=== PATIENT | female | born 1990 | race Hispanic/Latino ===

== ENCOUNTER 2019-02-08 15:45 | Inpatient (IN) | payer OTHER, MEDICAID ==
[2019-02-08] MEDS ORDERED: NARCAN 0.4 MG/1 ML IV PRN (17:12)
[2019-02-08] MEDS ORDERED: ZOFRAN IV PRN (17:12)
[2019-02-08] MEDS ORDERED: XYLOCAINE 2% INFILTRATI ONE (17:12)
[2019-02-08] MEDS ORDERED: MINERAL OIL PO PRN (17:12)
[2019-02-08] MEDS ORDERED: BRETHINE SUB-Q PRN (17:12)
[2019-02-08] MEDS ORDERED: AMPICILLIN/NS 2 GM/100 ML 2 GM/100 ML BAG IV ONE (17:12)
[2019-02-08] MEDS ORDERED: STADOL IV PRN (17:12)
--- NOTE | 2019-02-08 17:27 | History and Physical Report ---
History of Present Illness Date of examination: 02/08/19 Date of admission: 02/08/2019 Chief complaint: Presents for elevated blood pressures at the [facility] this morning. Also admits to visual changes over the last week. History of present illness: care starting at 16 weeks at [facility], 2nd trimester complicated by +Chlamydia (treated with a negative NIKITA); third trimester complicated by a abnormal 1hour GTT; followed by a normal 3hour GTT. course complicated by excessive maternal weight gain (54lbs). 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)), other (Inmate at [facility]) - Obstetrical History Expected Date of Delivery: 02/14/19 Actual Gestation: 39 Week(s) 1 Day(s) : 9 Para: 7 Induced : 1 Number of Living Children: 7 #1 Infant Gender: Male year: 2,004 Birthweight: 3.26 kg Method of Delivery: Vaginal Complications: none #2 Infant Gender: Female year: 2,005 Birthweight: 3.175 kg Method of Delivery: Vaginal Complications: none #3 Gender: Female year: 2,007 Birthweight: 3.175 kg Method of Delivery: Vaginal Complications: none #4 Gender: Female year: 2,010 Birthweight: 3.175 kg Method of Delivery: Vaginal #5 Gender: Male year: 2,013 Birthweight: 3.175 kg Complications: none #6 Infant Gender: Male year: 2,014 Birthweight: 3.175 kg Method of Delivery: Vaginal Complications: none #7 Gender: Female year: 2,017 Method of Delivery: Vaginal Complications: none Medications and Allergies Allergies Allergy/AdvReac Type Severity Reaction Status Date / Time No Known Allergies Allergy Verified 11/05/14 02:38 Home Medications Medication Instructions Recorded Confirmed Last Taken Type Vits96/Iron Fum/Folic 1 each PO QDAY 12/14/14 09/28/17 12/13/14 History [ Tablet] Active Meds: Active Medications Butorphanol Tartrate (Stadol) 2 mg IV Q2H PRN PRN Reason: Pain , Severe (7-10) Ephedrine Sulfate (Ephedrine Sulfate) 10 mg IV Q2M PRN PRN Reason: Hypotension Ampicillin Sodium (Ampicillin/Ns 1 Gm/50 Ml) 1 gm in 50 mls @ 100 mls/hr IV Q4HR CHRISTIANO; Protocol Ampicillin Sodium (Polycillin/Ns 2 Gm/100 Ml) 2 gm in 100 mls @ 100 mls/hr IV ONCE ONE; Protocol Stop: 02/08/19 18:11 Lactated Ringer's (Lactated Ringers) 1,000 mls @ 125 mls/hr IV DIRECT CHRISTIANO Oxytocin/Sodium Chloride (Pitocin/Ns 20 Unit/1000ml Drip) 20 units in 1,000 mls @ 125 mls/hr IV DIRECT CHRISTIANO Oxytocin/Sodium Chloride (Pitocin/Ns 30 Unit/500ml) 30 units in 500 mls @ 4 mls/hr IV TITR CHRISTIANO; Protocol Lidocaine (Xylocaine 2%) 20 ml INFILTRATI ONCE ONE Stop: 02/08/19 17:13 Mineral Oil (Mineral Oil) 30 ml PO QHS PRN PRN Reason: Constipation Naloxone HCl (Narcan 0.4 Mg/1 Ml) 0.1 mg IV Q2MIN PRN PRN Reason: Res Rate </= 8 or 02 SAT < 92% Ondansetron HCl (Zofran) 4 mg IV Q8H PRN PRN Reason: Nausea And Vomiting Terbutaline Sulfate (Brethine) 0.25 mg SUB-Q ONCE PRN PRN Reason: Hyperstimulation/Hypertonicity Review of Systems All systems: negative Eyes: other (black spots on and off x 1 week) - Vital Signs Vital signs: Vital Signs Pulse BP 102 H 124/64 02/08/19 16:21 02/08/19 16:21 Temp Pulse Resp BP Pulse Ox 98.2 F 86 20 97/54 02/08/19 16:25 02/08/19 17:06 02/08/19 16:25 02/08/19 17:06 - Physical Exam Breasts: Positive: normal Cardiovascular: Regular rate Lungs: Positive: Clear to auscultation, Normal air movement Abdomen: Positive: normal appearance, normal bowel sounds Genitourinary (Female): Positive: normal external genitalia, normal perenium Vagina: Positive: normal moisture Uterus: Positive: enlarged Anus/Rectum: Positive: normal perianal skin - Obstetrical FHR: category 1 Uterine Contraction Monitor Mode: External Cervical Dilatation: 3 (Vtx; Intact) Cervical Effacement Percentage: 40 station: -3 Uterine Contraction Pattern: Irregular Uterine Tone Measurement Phase: Resting Uterine Contraction Intensity: Mild Results All other labs normal. Assessment and Plan A: IUP @ 39 1/7 Weeks Category I Tracing GBS Positive [facility] P: Admit to L&D per Routine Orders Pitocin Augmentation GBS Prophylaxis
[2019-02-08 17:37] LABS: Bacteria,Urine 2+ /HPF (Negative); Bilirubin,Urine NEG (Negative); Blood,Urine NEG (Negative); Color,Urine Yellow (Yellow); Mucus,Urine FEW /HPF; Protein,Urine <15 mg/dL mg/dL (Negative); RBC,Urine < 1.0 /HPF (0.0-6.0); Urobilinogen,Urine < 2.0 mg/dL (<2.0); WBC,Urine < 1.0 /HPF (0.0-6.0)
[2019-02-08] MEDS ORDERED: PITOCin/NS 30 UNIT/500ML 30 UNITS/500 ML BAG IV SCH (18:00)
[2019-02-08] MEDS ORDERED: PITOCin/NS 20 UNIT/1000ML DRIP 20 UNITS/1,000 ML BAG IV SCH (18:00)
[2019-02-08] MEDS: LACTATED RINGERS 1,000 ML IV SCH (19:56)
[2019-02-08] MEDS ORDERED: CERVIDIL VG ONE (20:03)
[2019-02-08 20:52] LABS: Hematocrit 32.3 % (30.3-42.9); Hemoglobin 10.9 gm/dl (10.1-14.3); Mean Corpuscular HGB Conc 34 % (30-34); Mean Corpuscular Volume 93 fl (79-97); Platelet Count 208 K/mm3 (140-440); Red Blood Count 3.46 M/mm3 (3.65-5.03); Red Cell Distribution Width 14.4 % (13.2-15.2)
[2019-02-08 21:09] LABS: Alanine Aminotransferase 6 units/L (7-56)
[2019-02-08 21:21] LABS: Uric Acid 5.1 mg/dL (3.5-7.6)
[2019-02-08 22:21] LABS: Amphetamine Screen,Urine PRESUMPTIVE NEGATIVE; Benzodiazepines Screen,Urine PRESUMPTIVE NEGATIVE; Cannabinoid Screen,Urine PRESUMPTIVE NEGATIVE; Cocaine Screen,Urine PRESUMPTIVE NEGATIVE; Methadone Screen,Urine PRESUMPTIVE NEGATIVE; Opiate Screen,Urine PRESUMPTIVE NEGATIVE
[2019-02-09] MEDS: AMPICILLIN/NS 1 GM/50 ML 1 GM/50 ML BAG IV SCH ×3 (04:25→14:19)
[2019-02-09] MEDS: LACTATED RINGERS 1,000 ML IV SCH (05:27)
--- NOTE | 2019-02-09 09:34 | Progress Note ---
Assessment and Plan A: IUP @ 39 2/7 Weeks Category I Tracing GBS Positive [facility] P: Remove Cervidil AROM Internal (IUPC) x1 Continue GBS Prophylaxis Subjective - Subjective Date of service: 02/09/19 Interval history: care starting at 16 weeks at [facility], 2nd trimester complicated by +Chlamydia (treated with a negative NIKITA); third trimester complicated by a abnormal 1hour GTT; followed by a normal 3hour GTT. course complicated by excessive maternal weight gain (54lbs). Patient reports: movement normal Objective - Vital Signs Vital Signs: Vital Signs - 12hr 02/08/19 02/08/19 02/09/19 22:45 23:14 00:43 Temperature Pulse Rate 100 H 96 H 109 H Blood Pressure 101/51 87/47 105/57 O2 Sat by Pulse Oximetry 02/09/19 02/09/19 02/09/19 01:43 02:43 03:43 Temperature Pulse Rate 104 H 94 H 92 H Blood Pressure 117/61 116/56 117/56 O2 Sat by Pulse Oximetry 02/09/19 02/09/19 02/09/19 05:43 06:43 07:07 Temperature 98.4 F Pulse Rate 93 H 101 H Blood Pressure 117/57 125/82 O2 Sat by Pulse Oximetry 02/09/19 02/09/19 02/09/19 07:37 08:07 09:26 Temperature Pulse Rate 96 H 96 H 107 H Blood Pressure 120/64 115/64 O2 Sat by Pulse 98 Oximetry 02/09/19 09:29 Temperature Pulse Rate 104 H Blood Pressure 110/58 O2 Sat by Pulse Oximetry - Exam Breasts: normal Cardiovascular: Regular rate Lungs: Clear to auscultation, Normal air movement Abdomen: Present: normal appearance, soft, normal bowel sounds Uterus: Present: normal, firm, fundal height above umbilicus FHR: category 1 Uterine Contraction Monitor Mode: Internal Cervical Dilatation: 4 (Small amount of clear fluid upon AROM at 0925 ) Cervical Effacement Percentage: 60 station: -2 Uterine Contraction Pattern: Irregular Uterine Tone Measurement Phase: Resting Uterine Contraction Intensity: Mild Extremities: normal - Labs Labs: Abnormal Labs 02/08/19 02/08/19 20:28 20:28 WBC 11.2 H RBC 3.46 L Creatinine 0.5 L ALT 6 L Laboratory Results - last 24 hr 02/08/19 02/08/19 02/08/19 17:00 17:00 20:28 WBC 11.2 H RBC 3.46 L Hgb 10.9 Hct 32.3 MCV 93 MCH 31 MCHC 34 RDW 14.4 Plt Count 208 Creatinine Estimated GFR Uric Acid AST ALT Lactate Dehydrogenase Urine Color Yellow Urine Turbidity Clear Urine pH 7.0 Ur Specific [place] 1.011 Urine Protein <15 mg/dl Urine Glucose (UA) Neg Urine Ketones Tr Urine Blood Neg Urine Nitrite Neg Urine Bilirubin Neg Urine Urobilinogen < 2.0 Ur Leukocyte Esterase Neg Urine WBC (Auto) < 1.0 Urine RBC (Auto) < 1.0 U Epithel Cells (Auto) 2.0 Urine Bacteria (Auto) 2+ Urine Mucus Few Urine Opiates Screen Presumptive negative Urine Methadone Screen Presumptive negative Ur Barbiturates Screen Presumptive negative Ur Phencyclidine Scrn Presumptive negative Ur Amphetamines Screen Presumptive negative U Benzodiazepines Scrn Presumptive negative Urine Cocaine Screen Presumptive negative U Marijuana (THC) Screen Presumptive negative Drugs of Abuse Note Disclamer Blood Type Antibody Screen 02/08/19 02/08/19 20:28 20:35 WBC RBC Hgb Hct MCV MCH MCHC RDW Plt Count Creatinine 0.5 L Estimated GFR > 60 Uric Acid 5.1 AST 12 ALT 6 L Lactate Dehydrogenase 160 Urine Color Urine Turbidity Urine pH Ur Specific [place] Urine Protein Urine Glucose (UA) Urine Ketones Urine Blood Urine Nitrite Urine Bilirubin Urine Urobilinogen Ur Leukocyte Esterase Urine WBC (Auto) Urine RBC (Auto) U Epithel Cells (Auto) Urine Bacteria (Auto) Urine Mucus Urine Opiates Screen Urine Methadone Screen Ur Barbiturates Screen Ur Phencyclidine Scrn Ur Amphetamines Screen U Benzodiazepines Scrn Urine Cocaine Screen U Marijuana (THC) Screen Drugs of Abuse Note Blood Type A POSITIVE Antibody Screen Negative
[2019-02-09] MEDS ORDERED: NARCAN 2 MG/2 ML IV PRN (10:13)
--- NOTE | 2019-02-09 10:15 | Anesthesia Consultation ---
Anesthesia Consult and Med Hx Date of service: 02/09/19 - Airway Anesthetic Teeth Evaluation: Good ROM Head & Neck: Adequate Mental/Hyoid Distance: Adequate Mallampati Class: Class II Intubation Access Assessment: Probably Good - Pulmonary Exam CTA: Yes - Cardiac Exam Cardiac Exam: RRR - Pre-Operative Health Status ASA Pre-Surgery Classification: ASA2 Proposed Anesthetic Plan: Epidural - Pulmonary Hx Smoking: Yes Hx Asthma: Yes COPD: No Hx Pneumonia: No - Cardiovascular System Hx Hypertension: No Hx Coronary Artery Disease: No Hx Heart Attack/AMI: No Hx Angina: No Hx Percutaneous Transluminal Coronary Angioplasty (PTCA): No Hx Cardia Arrhythmia: No Hx Pacemaker: No Hx Internal Defibrillator: No Hx Valvular Heart Disease: No Hx Heart Murmur: No Hx Peripheral Vascular Disease: No - Central Nervous System Hx Neuromuscular Disorder: No Hx Seizures: No CVA: No Hx Back Pain: No Hx Psychiatric Problems: No - Gastrointestinal Hx Ulcer: No Hx Gastroesophageal Reflux Disease: No - Endocrine Hx Renal Disease: No Hx End Stage Renal Disease: No Hx Cirrhosis: No Hx Liver Disease: No Hx Insulin Dependent Diabetes: No Hx Non-Insulin Dependent Diabetes: No Hx Thyroid Disease: No Hx Hypothyroidism: No Hx Hyperthyroidism: No - Hematic Hx Anemia: Yes Hx Sickle Cell Disease: No - Other Systems Hx Alcohol Use: No Hx Substance Use: Yes (methamphetamines) Hx Cancer: No Hx Obesity: Yes
[2019-02-09] MEDS ORDERED: SUBLIMAZE ONE (10:20)
[2019-02-09] MEDS ORDERED: XYLOCAINE 2%/ EPI 1:200,000 INFILTRATI ONE (10:20)
[2019-02-09] MEDS ORDERED: fentaNYL-BUPIV 2 MCG/ML-0.125% 200 MCG/100 ML BAG EPIDURAL SCH (11:00)
[2019-02-09] MEDS ORDERED: NACL 0.9% 1000 ML 1,000 ML ONE (11:42)
--- NOTE | 2019-02-09 12:20 | Progress Note ---
Assessment and Plan A: IUP @ 39 2/7 Weeks Category I Tracing GBS Positive [facility] Inmate P: ISE placed O2 Mask on Pitocin OFF Amnioinfusion started Multiple Maternal Position Changes (FHTs returned to Category I after above interventions) Subjective - Subjective Date of service: 02/09/19 Interval history: care starting at 16 weeks at [facility], 2nd trimester complicated by +Chlamydia (treated with a negative NIKITA); third trimester complicated by a abnormal 1hour GTT; followed by a normal 3hour GTT. course complicated by excessive maternal weight gain (54lbs). Patient reports: other (Resting Well Under Epidural) Objective - Vital Signs Vital Signs: Vital Signs - 12hr 02/09/19 02/09/19 02/09/19 00:43 01:43 02:43 Temperature Pulse Rate 109 H 104 H 94 H Blood Pressure 105/57 117/61 116/56 O2 Sat by Pulse Oximetry 02/09/19 02/09/19 02/09/19 03:43 05:43 06:43 Temperature Pulse Rate 92 H 93 H 101 H Blood Pressure 117/56 117/57 125/82 O2 Sat by Pulse Oximetry 02/09/19 02/09/19 02/09/19 07:07 07:37 08:07 Temperature 98.4 F Pulse Rate 96 H 96 H Blood Pressure 120/64 115/64 O2 Sat by Pulse Oximetry 02/09/19 02/09/19 02/09/19 09:26 09:29 09:31 Temperature Pulse Rate 107 H 104 H 105 H Blood Pressure 110/58 O2 Sat by Pulse 98 97 Oximetry 02/09/19 02/09/19 02/09/19 09:36 09:37 09:41 Temperature Pulse Rate 98 H 95 H 100 H Blood Pressure 111/55 O2 Sat by Pulse 97 97 Oximetry 02/09/19 02/09/19 02/09/19 09:46 09:51 09:56 Temperature Pulse Rate 103 H 92 H 95 H Blood Pressure O2 Sat by Pulse 97 98 97 Oximetry 02/09/19 02/09/19 02/09/19 10:01 10:06 10:07 Temperature Pulse Rate 100 H 92 H 93 H Blood Pressure 121/63 O2 Sat by Pulse 97 97 Oximetry 02/09/19 02/09/19 02/09/19 10:11 10:16 10:21 Temperature Pulse Rate 94 H 95 H 110 H Blood Pressure O2 Sat by Pulse 97 98 97 Oximetry 02/09/19 02/09/19 02/09/19 10:26 10:28 10:30 Temperature Pulse Rate 106 H 102 H 113 H Blood Pressure 130/76 135/83 O2 Sat by Pulse 98 Oximetry 02/09/19 02/09/19 02/09/19 10:31 10:32 10:34 Temperature Pulse Rate 113 H 112 H 112 H Blood Pressure 121/66 126/58 O2 Sat by Pulse 97 Oximetry 02/09/19 02/09/19 02/09/19 10:36 10:38 10:40 Temperature Pulse Rate 118 H 122 H 130 H Blood Pressure 122/60 114/54 118/57 O2 Sat by Pulse 97 Oximetry 02/09/19 02/09/19 02/09/19 10:42 10:43 10:44 Temperature Pulse Rate 113 H 117 H 117 H Blood Pressure 123/64 112/59 O2 Sat by Pulse 98 Oximetry 02/09/19 02/09/19 02/09/19 10:55 10:58 11:17 Temperature Pulse Rate 101 H 104 H 97 H Blood Pressure 107/54 97/51 112/55 O2 Sat by Pulse Oximetry 02/09/19 02/09/19 02/09/19 11:21 11:23 11:26 Temperature Pulse Rate 100 H 93 H 98 H Blood Pressure O2 Sat by Pulse 98 94 97 Oximetry 02/09/19 02/09/19 02/09/19 11:31 11:36 11:41 Temperature Pulse Rate 81 93 H 85 Blood Pressure O2 Sat by Pulse 98 100 100 Oximetry 02/09/19 02/09/19 02/09/19 11:46 11:50 12:02 Temperature Pulse Rate 91 H 93 H 84 Blood Pressure 101/51 102/56 O2 Sat by Pulse 100 Oximetry - Exam Breasts: normal Cardiovascular: Regular rate Lungs: Clear to auscultation, Normal air movement Abdomen: Present: normal appearance, soft, normal bowel sounds Uterus: Present: normal, firm, fundal height above umbilicus FHR: category 1 FHR comments: Called by RN; multiple late decels observed after epidural anesthesia Uterine Contraction Monitor Mode: Internal Cervical Dilatation: 5 (leaking a modrate amout of clear fluid) Cervical Effacement Percentage: 70 station: -2 Uterine Contraction Pattern: Irregular Uterine Contraction Intensity: Moderate Extremities: edema - Labs Labs: Abnormal Labs 02/08/19 02/08/19 20:28 20:28 WBC 11.2 H RBC 3.46 L Creatinine 0.5 L ALT 6 L Laboratory Results - last 24 hr 02/08/19 02/08/19 02/08/19 17:00 17:00 20:18 WBC RBC Hgb Hct MCV MCH MCHC RDW Plt Count Creatinine Estimated GFR Uric Acid AST ALT Lactate Dehydrogenase Urine Color Yellow Urine Turbidity Clear Urine pH 7.0 Ur Specific [place] 1.011 Urine Protein <15 mg/dl Urine Glucose (UA) Neg Urine Ketones Tr Urine Blood Neg Urine Nitrite Neg Urine Bilirubin Neg Urine Urobilinogen < 2.0 Ur Leukocyte Esterase Neg Urine WBC (Auto) < 1.0 Urine RBC (Auto) < 1.0 U Epithel Cells (Auto) 2.0 Urine Bacteria (Auto) 2+ Urine Mucus Few Urine Opiates Screen Presumptive negative Urine Methadone Screen Presumptive negative Ur Barbiturates Screen Presumptive negative Ur Phencyclidine Scrn Presumptive negative Ur Amphetamines Screen Presumptive negative U Benzodiazepines Scrn Presumptive negative Urine Cocaine Screen Presumptive negative U Marijuana (THC) Screen Presumptive negative Drugs of Abuse Note Disclamer RPR Nonreactive Blood Type Antibody Screen 02/08/19 02/08/19 02/08/19 20:28 20:28 20:35 WBC 11.2 H RBC 3.46 L Hgb 10.9 Hct 32.3 MCV 93 MCH 31 MCHC 34 RDW 14.4 Plt Count 208 Creatinine 0.5 L Estimated GFR > 60 Uric Acid 5.1 AST 12 ALT 6 L Lactate Dehydrogenase 160 Urine Color Urine Turbidity Urine pH Ur Specific [place] Urine Protein Urine Glucose (UA) Urine Ketones Urine Blood Urine Nitrite Urine Bilirubin Urine Urobilinogen Ur Leukocyte Esterase Urine WBC (Auto) Urine RBC (Auto) U Epithel Cells (Auto) Urine Bacteria (Auto) Urine Mucus Urine Opiates Screen Urine Methadone Screen Ur Barbiturates Screen Ur Phencyclidine Scrn Ur Amphetamines Screen U Benzodiazepines Scrn Urine Cocaine Screen U Marijuana (THC) Screen Drugs of Abuse Note RPR Blood Type A POSITIVE Antibody Screen Negative
[2019-02-09] MEDS ORDERED: CYTOTEC ONE (13:54)
[2019-02-09] MEDS ORDERED: BENADRYL PO PRN (14:08)
[2019-02-09] MEDS ORDERED: MILK OF MAGNESIA PO PRN (14:08)
[2019-02-09] MEDS ORDERED: LANSINOH TP PRN (14:08)
--- NOTE | 2019-02-09 14:18 | Procedure Note ---
OB Delivery Note - Delivery Date of Delivery: 02/09/19 (1349) Surgeon: KAYLI JORDAN Estimated blood loss: 200cc - Vaginal Delivery presentation: vertex Delivery position: OA Intrapartum events: mult. late decelerations Delivery induction: cervidil Delivery augmentation: rupture of membranes, pitocin Delivery monitor: internal FHT, internal uterine Route of delivery: Delivery placenta: spontaneous Delivery cord: nuchal cord, 3 umbilical vessels Episiotomy: none Delivery laceration: none Anesthesia: epidural Delivery comments: of a live 9'1 male infant over a intact perineum under epidural anesthesia with Apgars of 8 and 9 at 1349 on 02/09/2019. Tight nuchal cord x1 easily manually reduced on the perineum prior to delivery of the anterior shoulder. Infant directly to maternal abd/chest, skin to skin contact. Spontaneous delivery of placenta complete and intact with Ramirez side presenting at 1357. 1000U of Cytotec placed per rectum. Fundus is firm and midline located 5 below the U. Lochia is scant. Delayed cord clamping and cutting; Cord cut by the patient. GBS Positive treated x 4 Doses. Placenta discarded. - Infant A at 1 minute: 8 at 5 minutes: 9 Infant Gender: Male (9'1)
[2019-02-09] MEDS ORDERED: CYTOTEC PR ONE (14:54)
[2019-02-09] MEDS ORDERED: SODIUM CHLORIDE FLUSH SYRINGE 10 ML IV SCH (15:00)
--- NOTE | 2019-02-09 15:54 | Post Anesthesia Evaluation ---
- Post Anesthesia Evaluation Patient Participated: Yes Airway Patent: Yes Stable Respiratory Function: Yes Nausea/Vomiting: No Temp > 96.8F: Yes Pain Manageable: Yes Adequeate Hydration: Yes Anesthesia Complications: No Block Receding Appropriately: Yes Patient on Ventilator: No
[2019-02-09] MEDS ORDERED: TUCKS PAD TP PRN (20:26)
[2019-02-09] MEDS: NORCO 5/325 PO PRN (20:46)
[2019-02-09] MEDS: IBUPROFEN PO SCH (20:46)
[2019-02-09] MEDS: COLACE PO SCH (20:47)
[2019-02-10 01:39] LABS: Hematocrit 30.8 % (30.3-42.9); Hemoglobin 10.3 gm/dl (10.1-14.3)
[2019-02-10] MEDS: NORCO 5/325 PO PRN ×2 (07:51→17:04)
[2019-02-10] MEDS: IBUPROFEN PO SCH ×3 (07:52→17:03)
--- NOTE | 2019-02-10 11:08 | Progress Note ---
Assessment and Plan A: PPD#1 s/p 02/09/19@13:49 Mother incarcerated @ [facility] Stable P: Follow Routine orders Social service consult (pending); Pt reports her brother is coming from [place] to keep infant until she is released from Group Home. Discharge 02/11/2019 back to custody of [facility] Subjective - Subjective Date of service: 02/10/19 Principal diagnosis: PPD#1 s/p ; Mother incarcerated @ [facility] Patient reports: appetite normal, voiding normally, pain well controlled, flatus, ambulating normally, no bowel movement : doing well, bottle feeding Objective - Vital Signs Latest vital signs: Vital Signs Temp Pulse Resp BP BP Pulse Ox 02/10/19 07:28 97.4 F L 85 16 100/64 98 02/10/19 00:00 98.4 F 74 16 104/68 02/09/19 20:00 98.7 F 77 18 115/54 02/09/19 15:02 100 H 113/68 02/09/19 14:32 106 H 103/53 02/09/19 14:28 99.2 F 02/09/19 14:02 115 H 98/54 02/09/19 13:55 112 H 101/55 02/09/19 13:03 101 H 115/57 02/09/19 12:32 99 H 117/68 02/09/19 12:02 84 102/56 02/09/19 11:50 93 H 101/51 02/09/19 11:46 91 H 100 02/09/19 11:41 85 100 02/09/19 11:36 93 H 100 02/09/19 11:31 81 98 02/09/19 11:26 98 H 97 02/09/19 11:23 93 H 94 02/09/19 11:21 100 H 98 02/09/19 11:17 97 H 112/55 Intake and Output 02/09/19 02/10/19 02/10/19 23:59 07:59 15:59 Intake Total 300 240 Output Total 1700 300 Balance -1700 0 240 Intake: Oral 240 Intake, Free Water 300 Output: Urine 1700 300 Void 1700 300 Other: Total, Intake Amount 240 Total, Output Amount 300 300 # Voids Void 1 1 - Exam Breasts: Present: normal Cardiovascular: Present: Regular rate, Normal S1, Normal S2, No murmurs Lungs: Present: Clear to auscultation, Normal air movement Abdomen: Present: normal appearance, soft, normal bowel sounds. Absent: distention Vulva: both: normal Uterus: Present: firm, fundal height at umbilicus Extremities: Present: normal Deep Tendon Reflex Grade: Normal +2
--- NOTE | 2019-02-10 11:11 | Discharge Summary ---
Providers - Providers Date of Admission: 02/08/19 15:46 Date of discharge: 02/11/19 Attending physician: NATHALIA HERNANDEZ MD Primary care physician: NATHALIA HERNANDEZ MD Hospitalization Reason for admission: active labor, IUP at term Delivery: Procedure details: See H&P and delivery note Episiotomy: none Laceration: none Other procedures: none complications: none Discharge diagnosis: IUP at term delivered baby: male Condition at discharge: Good Disposition: [id number]/[id number]/LAW ENF[employer]CEMENT Plan - Discharge Medications Prescriptions: Ibuprofen [Motrin 600 MG tab] 600 mg PO Q6HR #30 tablet - Provider Discharge Summary Activity: routine, no sex for 6 weeks, no heavy lifting 4 weeks, no strenuous exercise Diet: routine Instructions: routine Additional instructions: [] Smoking cessation referral if applicable(refer to patient education folder for contact #) [] Refer to [facility]'s [facility] Booklet Call your doctor immediately for: * Fever > 100.5 * Heavy vaginal bleeding ( >1 pad per hour) * Severe persistent headache * Shortness of breath * Reddened, hot, painful area to leg or breast * Drainage or odor from incision. * Keep incision clean and dry at all times and follow doctor's instructions regarding bathing/showering - Follow up plan Follow up: NATHALIA HERNANDEZ MD [Primary Care Provider] - 6 Weeks
[2019-02-10] MEDS: COLACE PO SCH (22:00)
[2019-02-11] MEDS: IBUPROFEN PO SCH ×2 (03:33→10:00)
[2019-02-11] MEDS: NORCO 5/325 PO PRN (03:34)
[2019-02-11] MEDS ORDERED: BOOSTRIX IM ONE (08:30)
[2019-02-11] MEDS ORDERED: AFLURIA QUAD 2018-2019 SYRINGE IM ONE (08:30)
[2019-02-11] MEDS ORDERED: M-M-R II VACCINE SUB-Q ONE (08:30)
[2019-02-11 08:55] VITALS: BP 107/57
== END 2019-02-11 07:20 | DRG 807 ==
LOC: EEVIPCON 15:45 → TRG 15:45 → LD 15:46 → TRG 15:46 → OB 02-09 16:15
PROVIDERS: ADMIT Obstetrics & Gynecology; ATTEND Obstetrics & Gynecology
PROC: 3E0P7VZ Introduction of Hormone into Female Reproductive, Via Natural or Artificial Opening (ICD-10-PCS; 2019-02-08)
PROC: 10E0XZZ Delivery of Products of Conception, External Approach (ICD-10-PCS; principal; 2019-02-09)
PROC: 3E0E7GC Introduction of Other Therapeutic Substance into Products of Conception, Via Natural or Artificial Opening (ICD-10-PCS; 2019-02-09)
PROC: 10907ZC Drainage of Amniotic Fluid, Therapeutic from Products of Conception, Via Natural or Artificial Opening (ICD-10-PCS; 2019-02-09)
PROC: 10H07YZ Insertion of Other Device into Products of Conception, Via Natural or Artificial Opening (ICD-10-PCS; 2019-02-09)
PROC: 3E0R3BZ Introduction of Anesthetic Agent into Spinal Canal, Percutaneous Approach (ICD-10-PCS; 2019-02-09)
PROC: 00HU33Z Insertion of Infusion Device into Spinal Canal, Percutaneous Approach (ICD-10-PCS; 2019-02-09)
PROC: 3E0234Z Introduction of Serum, Toxoid and Vaccine into Muscle, Percutaneous Approach (ICD-10-PCS; 2019-02-11)
DX: O99.824 Streptococcus B carrier state complicating childbirth (principal); Z37.0 Single live birth; O76 Abnormality in fetal heart rate and rhythm complicating labor and delivery; O69.1XX0 Labor and delivery complicated by cord around neck, with compression, not applicable or unspecified; J45.909 Unspecified asthma, uncomplicated; O99.334 Smoking (tobacco) complicating childbirth; O99.52 Diseases of the respiratory system complicating childbirth; O99.214 Obesity complicating childbirth; E66.9 Obesity, unspecified; F17.210 Nicotine dependence, cigarettes, uncomplicated; Z3A.39 39 weeks gestation of pregnancy; Z90.49 Acquired absence of other specified parts of digestive tract; Z82.49 Family history of ischemic heart disease and other diseases of the circulatory system; Z82.3 Family history of stroke; Z80.49 Family history of malignant neoplasm of other genital organs; Z23 Encounter for immunization
CPT/HCPCS: 36415; 80307; 81001; 82565; 83615; 84450; 84460; 84550; 85014; 85018; 85027; 86592; 86850; 86900; 86901; 90686; 90707; 90715; G0378; J0290; J2405; J2590; J3010; J7030; J7120

== ENCOUNTER 2020-08-09 22:02 | Emergency (ER) | payer MEDICAID, OTHER ==
[2020-08-09 22:39] LABS: Basophils # (Auto) 0.1 K/mm3 (0.0-0.1); Basophils % (Auto) 0.6 % (0.0-1.8); Eosinophils # (Auto) 0.3 K/mm3 (0.0-0.4); Eosinophils % (Auto) 3.2 % (0.0-4.3); Hematocrit 31.9 % (30.3-42.9); Hemoglobin 10.4 gm/dl (10.1-14.3); Lymphocytes % (Auto) 22.8 % (13.4-35.0); Mean Corpuscular HGB Conc 33 % (30-34); Mean Corpuscular Volume 87 fl (79-97); Monocytes # (Auto) 0.4 K/mm3 (0.0-0.8); Monocytes % (Auto) 4.1 % (0.0-7.3); Platelet Count 296 K/mm3 (140-440); Red Blood Count 3.69 M/mm3 (3.65-5.03); Red Cell Distribution Width 15.4 % (13.2-15.2)
[2020-08-09 22:49] LABS: INR 1.04 (0.87-1.13)
[2020-08-09 22:50] LABS: Partial Thromboplastin Time 25.5 Sec. (24.2-36.6)
[2020-08-09 23:00] LABS: BUN/Creatinine Ratio 9; Blood Urea Nitrogen 7 mg/dL (7-17); Calcium 8.7 mg/dL (8.4-10.2); Hemolysis Index 5
--- NOTE | 2020-08-09 23:35 | Ultrasound Report ---
OBSTETRICAL ULTRASOUND HISTORY: Vaginal bleeding. The uterus measures 8.7 x 5 x 6.4 cm. The endometrial stripe measures 9.5 mm. No intrauterine pregnan cy or gestational sac is identified. The right and left ovaries are not visualized. Negative for adnexal mass or fluid. IMPRESSION: 1. Mildly prominent endometrial stripe. No intrauterine . 2. Adnexa are unremarkable. Signer Name: Rene King MD Signed: 08/09/2020 11:30 PM Workstation Name: [id number]
[2020-08-10] MEDS ORDERED: ONDANSETRON 4 MG/2 ML INJ IV ONE (00:03)
[2020-08-10] MEDS ORDERED: SODIUM CHLORIDE 0.9% 1000 ML 1,000 ML IV ONE (00:03)
[2020-08-10] MEDS ORDERED: MORPHINE 4 MG/1 ML INJ IV ONE (00:03)
--- NOTE | 2020-08-10 00:08 | Emergency Department Report ---
ED General Adult HPI - General Chief complaint: Vaginal Bleeding Stated complaint: MISCARRIAGE Time Seen by Provider: 08/09/20 22:15 Source: patient, EMS Mode of arrival: Stretcher Limitations: No Limitations - History of Present Illness Initial comments: Patient is 30 years old female with history of asthma, 10 para 8 with 1 . Patient presented to the ER complaining of vaginal bleeding for the last 2 days. Patient described the bleeding is heavier than her menstrual cycle. Patient did not have any care done for this current before. In fact patient stated that she does not know if she was or not. Patient is complaining of crampy lower abdominal pain. Patient denied any chest pain, shortness of breath, weakness numbness or tingling sensation. - Related Data Home Medications Medication Instructions Recorded Confirmed Last Taken Vits96/Iron Fum/Folic 1 each PO QDAY 11/05/14 02/09/19 02/08/19 [ Tablet] Previous Rx's Medication Instructions Recorded Last Taken Type Ibuprofen [Motrin 600 MG tab] 600 mg PO Q6HR #30 tablet 02/10/19 Unknown Rx Allergies Allergy/AdvReac Type Severity Reaction Status Date / Time No Known Allergies Allergy Verified 11/05/14 02:38 ED Review of Systems ROS: Stated complaint: MISCARRIAGE Other details as noted in HPI Comment: All other systems reviewed and negative Constitutional: denies: chills, fever Respiratory: denies: cough, shortness of breath, SOB with exertion, SOB at rest, wheezing Cardiovascular: denies: chest pain, palpitations Gastrointestinal: abdominal pain. denies: nausea, vomiting ED Past Medical Hx - Past Medical History Hx Hypertension: No Hx Heart Attack/AMI: No Hx Congestive Heart Failure: No Hx Diabetes: No Hx Deep Vein Thrombosis: No Hx Liver Disease: No Hx Renal Disease: No Hx Sickle Cell Disease: No Hx Seizures: No Hx Asthma: Yes Hx COPD: No Hx HIV: No - Surgical History Hx Pacemaker: No Hx Internal Defibrillator: No - Social History Smoking Status: Former Smoker - Medications Home Medications: Home Medications Medication Instructions Recorded Confirmed Last Taken Type Vits96/Iron Fum/Folic 1 each PO QDAY 11/05/14 02/09/19 02/08/19 History [ Tablet] Ibuprofen [Motrin 600 MG tab] 600 mg PO Q6HR #30 tablet 02/10/19 Unknown Rx ED Physical Exam - General Limitations: No Limitations General appearance: alert, in no apparent distress - Head Head exam: Present: atraumatic, normocephalic, normal inspection - Eye Eye exam: Present: normal appearance - ENT ENT exam: Present: normal exam, normal orophraynx, mucous membranes moist - Neck Neck exam: Present: normal inspection, full ROM. Absent: tenderness, meningismus, lymphadenopathy, thyromegaly - Respiratory Respiratory exam: Present: normal lung sounds bilaterally. Absent: respiratory distress, wheezes, rales, rhonchi, chest wall tenderness, accessory muscle use, decreased breath sounds, prolonged expiratory - Cardiovascular Cardiovascular Exam: Present: tachycardia - GI/Abdominal GI/Abdominal exam: Present: soft, normal bowel sounds. Absent: distended, tenderness, guarding, rebound, rigid, organomegaly, mass, bruit, pulsatile mass, hernia - Bi-manual exam: Present: other (Declined) - Extremities Exam Extremities exam: Present: normal inspection, full ROM, normal capillary refill. Absent: tenderness, pedal edema, joint swelling, calf tenderness - Back Exam Back exam: Present: normal inspection, full ROM. Absent: CVA tenderness (R), CVA tenderness (L) - Neurological Exam Neurological exam: Present: alert, oriented X3, CN II-XII intact, normal gait, reflexes normal. Absent: motor sensory deficit - Skin Skin exam: Present: warm, intact, normal color ED Course Vital Signs 08/09/20 22:12 Pulse Rate 119 H Respiratory 17 Rate Blood Pressure 119/86 [Right] O2 Sat by Pulse 98 Oximetry ED Medical Decision Making - Lab Data Result diagrams: 08/09/20 22:24 08/09/20 22:24 - Medical Decision Making Patient is 30 years old female with history of asthma, 10 para 8 with 1 . Patient presented to the ER complaining of vaginal bleeding for the last 2 days. Patient described the bleeding is heavier than her menstrual cycle. Patient did not have any care done for this current before. In fact patient stated that she does not know if she was or not. Patient is complaining of crampy lower abdominal pain. Patient denied any chest pain, shortness of breath, weakness numbness or tingling sensation. Patient received normal saline, morphine and Zofran. Labs reviewed and is unremarkable including stable hemoglobin. Ultrasound showed no evidence of intra-uterine . No evidence of ectopic . Patient advised to follow-up with her OB doctor in the next 2 to 3 days and to return to the ER if she develop any new symptoms. Critical care attestation.: If time is entered above; I have spent that time in minutes in the direct care of this critically ill patient, excluding procedure time. ED Disposition Clinical Impression: Miscarriage, Abdominal pain affecting Disposition: DC- TO HOME OR SELFCARE Is pt being admited?: No Condition: Stable Instructions: Spontaneous Miscarriage (ED), Abdominal Pain in (ED) Referrals: [facility] [Provider Group] - 3-5 Days
[2020-08-10] MEDS ORDERED: METHYLERGONOVINE MALEATE 0.2 MG/ML VIAL IM ONE (00:11)
[2020-08-10 01:19] VITALS: BP 112/67
== END 2020-08-10 02:00 | disposition home or self-care (01) ==
LOC: ED 22:02 → EEVIPCON 22:02 → ED 08-10 02:00
DX: O03.9 Complete or unspecified spontaneous abortion without complication (principal); O26.891 Other specified pregnancy related conditions, first trimester; R10.30 Lower abdominal pain, unspecified; J45.909 Unspecified asthma, uncomplicated; Z79.1 Long term (current) use of non-steroidal anti-inflammatories (NSAID); Z79.899 Other long term (current) drug therapy; Z87.891 Personal history of nicotine dependence; Z3A.01 Less than 8 weeks gestation of pregnancy
CPT/HCPCS: 36415; 76801; 80048; 84702; 85025; 85610; 85730; 86900; 86901; 96361; 96372; 96374; 96375; 99284; J2210; J2270; J2405; J7030

== ENCOUNTER 2020-09-18 06:30 | Day surgery (SDC) | payer OTHER ==
--- NOTE | 2020-09-13 16:50 | History and Physical Report ---
History of Present Illness Date of examination: 09/13/20 Chief complaint: desiring permanent sterilization History of present illness: 30 yo c/b Class III Obesity, asthma, desiring permanent sterilization with bilateral tubal ligation with Filshie clips. Past History Past Medical History: asthma Past Surgical History: cholecystectomy (laparoscopic) NEGOTIATOR History: chlamydia Family/Genetic History: none Social history: no significant social history - Obstetrical History : 10 Para: 8 Hx # Term Pregnancies: 8 Spontaneous Abortions: 2 Number of Living Children: 8 Medications and Allergies Allergies Allergy/AdvReac Type Severity Reaction Status Date / Time No Known Allergies Allergy Verified 11/05/14 02:38 Home Medications Medication Instructions Recorded Confirmed Last Taken Type Vits96/Iron Fum/Folic 1 each PO QDAY 11/05/14 02/09/19 02/08/19 History [ Tablet] Ibuprofen [Motrin 600 MG tab] 600 mg PO Q6HR #30 tablet 02/10/19 Unknown Rx Ondansetron [Zofran Odt] 4 mg PO Q8HR PRN #14 tab.rapdis 08/10/20 Unknown Rx traMADoL [Ultram 50 MG tab] 50 mg PO Q4HR PRN #14 tablet 08/10/20 Unknown Rx Review of Systems All systems: negative (expect HPI) - Physical Exam Abdomen: Positive: normal appearance, normal bowel sounds, other (multiple laparoscopic scars) Results All other labs normal. Assessment and Plan - Patient Problems (1) Admission for sterilization Status: Acute Plan to address problem: --To OR for bilateral tubal ligation with Filshie clips --BTL consent form singed 08/16/2020 --Questions solicited and answered --Consented in chart
[2020-09-17 10:38] LABS: Basophils % (Auto) 0.4 % (0.0-1.8); Eosinophils # (Auto) 0.4 K/mm3 (0.0-0.4); Eosinophils % (Auto) 4.7 % (0.0-4.3); Hematocrit 28.6 % (30.3-42.9); Hemoglobin 8.9 gm/dl (10.1-14.3); Lymphocytes # (Auto) 1.6 K/mm3 (1.2-5.4); Mean Corpuscular HGB Conc 31 % (30-34); Mean Corpuscular Volume 80 fl (79-97); Monocytes # (Auto) 0.4 K/mm3 (0.0-0.8); Monocytes % (Auto) 5.1 % (0.0-7.3); Platelet Count 369 K/mm3 (140-440); Red Blood Count 3.56 M/mm3 (3.65-5.03)
[2020-09-17 10:59] LABS: BUN/Creatinine Ratio 11; Blood Urea Nitrogen 9 mg/dL (7-17); Calcium 9.6 mg/dL (8.4-10.2); Hemolysis Index 0
[~2020-09-18 06:30] MED LIST: ACETAMINOPHEN 500 MG TAB PO SCH; CELECOXIB 200 MG CAP PO NR; GABAPENTIN 300 MG CAP PO NR; LACTATED RINGERS 1,000 ML IV SCH; MIDAZOLAM 2 MG/2 ML INJ IV NR; SCOPOLAMINE TRANSDERMAL PATCH 72 HR TD NR; ceFAZolin/Water 2 GM/20 ML 2 GM/20 ML SYRINGE IV NR
[2020-09-18] MEDS ORDERED: BUPIVACAINE/PF (0.5%) 5 MG/1 ML 30 ML VIAL INFILTRATI ONE ×2 (06:34→09:30)
[2020-09-18] MEDS ORDERED: ceFAZolin/STERILE WATER 2 GM/20 ML SYRINGE IV ONE (08:09)
[2020-09-18] MEDS ORDERED: LACTATED RINGERS 1000 ML IV SOLN ONE (08:09)
[2020-09-18] MEDS ORDERED: ACETAMINOPHEN 500 MG TAB ONE (08:09)
[2020-09-18] MEDS ORDERED: SCOPOLAMINE TRANSDERMAL PATCH 72 HR TD ONE (08:09)
[2020-09-18] MEDS ORDERED: GABAPENTIN 300 MG CAP ONE (08:09)
[2020-09-18] MEDS ORDERED: MIDAZOLAM 2 MG/2 ML INJ ONE (08:09)
[2020-09-18] MEDS ORDERED: CELECOXIB 200 MG CAP ONE (08:09)
[2020-09-18] MEDS ORDERED: ROCURONIUM 50 MG/5 ML INJ IV ONE (09:00)
[2020-09-18] MEDS ORDERED: propofoL 200 MG/20 ML VIAL IV ONE (09:00)
[2020-09-18] MEDS ORDERED: fentaNYL 100 MCG/2 ML INJ ONE (09:00)
[2020-09-18] MEDS ORDERED: NEOSTIGMINE 10MG/10 ML INJ MDV ONE (09:34)
[2020-09-18] MEDS ORDERED: GLYCOPYRROLATE 0.4 MG/2 ML INJ ONE (09:34)
[2020-09-18] MEDS ORDERED: ONDANSETRON 4 MG/2 ML INJ ONE ×2 (09:34→10:38)
[2020-09-18] MEDS ORDERED: dexAMETHasone 20 MG/5 ML VIAL ONE (09:34)
[2020-09-18] MEDS ORDERED: ONDANSETRON 4 MG/2 ML INJ IV SCH (10:00)
[2020-09-18] MEDS ORDERED: ONDANSETRON 4 MG ODT TAB PO SCH (10:00)
[2020-09-18] MEDS ORDERED: HYDROmorphone 1 MG/1 ML INJ IV PRN (10:00)
[2020-09-18] MEDS ORDERED: HYDROmorphone 1 MG/1 ML INJ ONE (10:02)
--- NOTE | 2020-09-18 19:13 | Procedure Note ---
Date of procedure: 09/18/20 Pre-op diagnosis: Desiring permanent sterilization Post-op diagnosis: same Procedure: Preoperative diagnosis: Multiparous woman desiring permanent sterilization Postoperative diagnosis: Same Operation performed: 1. Exam under anesthesia 2. Laparoscopic bilateral tubal ligation with Filshie clips Surgeon: Tai Pierre Anesthesia: General endotracheal anesthesia Estimated blood loss 25 cc IVF 1000cc UOP 25cc Pathology Specimens: none Complications none Disposition and condition: To the PACU in stable condition and then discharged home Findings: 1. Small, mobile, anteverted uterus without adnexal masses on EUA 2. Normal uterus and bilateral tubes and ovaries on laparoscopy 3. Normal-appearing liver, gallbladder next Statement of medical necessity: 30 yo c/b Class III Obesity, asthma, desiring permanent sterilization with bilateral tubal ligation with Filshie clips. The patient was extensively counseled and offered reversal methods of contraception but declined. She was informed about the procedure failure rates and regret rates under the age of 30 years. The procedure risk, benefits, indications and alternatives were thoroughly reviewed with patient. Description of operation: After obtaining informed consent, the patient was taken to the operating room where satisfactory general endotracheal anesthesia was established. The patient was placed in modified supine position using Sanket stirrups ensuring proper positioning and cushioning to avoid nerve injury. An exam under anesthesia was performed with the findings noted above. She was prepped and draped in the usual sterile fashion. Straight catheterization of the bladder was performed. A [employer] manipulator was placed in order to aid in uterine manipulation. Attention was directed to the abdomen. A 5 mm incision was placed supraumbilically. With the patient horizontal, the camera and 5 mm trocar were introduced into the abdominal cavity while tenting up the abdominal wall with towel clips in order to gain entry into the abdominal cavity. Intraperitoneal placement was confirmed with initial pressure of 20 mmHg on insufflation. Pneumoperitoneum was obtained in the placed and the patient was placed in Trendelenburg position. A midline suprapubic incision was made with a scalpel and a 8 mm trocar was placed under direct visualization. The blunt grasper was used in order to inspect the pelvis with the findings noted above. The fallopian tubes were identified and followed out to the fimbriated ends. The entire mid isthmic girth of the left tube was grasped perpendicularly without difficulty with applicator. The clip was applied and good applied with tubal blanching was noted. There was no bleeding in the mesosalpinx. The same procedure was performed on contralateral side. This procedure was completed x2 with a result of 2 Filshie clips on each tube. All instruments were removed. Suprapubic trocar was removed under direct verbalization with port site hemostasis noted. The pneumoperitoneum was reduced and the umbilical trocar was removed under direct visitation while with withdrawing the laparoscope. The patient was returned to horizontal dorsal supine position. The skin incisions were closed with 2-0 Vicryl in a subcuticular fashion and dressed with Dermabond. The [employer] manipulator was removed from vagina. The patient tolerated the procedure well was extubated without difficulty and transferred recovery room in good condition. Sponge, needle instrument counts were correct x2. There is no surgical or anesthetic complications. Anesthesia: GETA Surgeon: TAI PIERRE JR Estimated blood loss: minimal IV fluids: 1,000 Urine output: 25 Pathology: none Condition: stable Disposition: same day
[2020-09-19 15:23] VITALS: BP 118/59
== END 2020-09-18 06:31 | disposition home or self-care (01) ==
LOC: OR 06:30
PROVIDERS: ATTEND Obstetrics & Gynecology
DX: Z30.2 Encounter for sterilization (principal); Z20.828 Contact with and (suspected) exposure to other viral communicable diseases; J45.909 Unspecified asthma, uncomplicated; K21.9 Gastro-esophageal reflux disease without esophagitis; E66.9 Obesity, unspecified; F17.210 Nicotine dependence, cigarettes, uncomplicated; F19.10 Other psychoactive substance abuse, uncomplicated; Z79.899 Other long term (current) drug therapy; Z90.49 Acquired absence of other specified parts of digestive tract; Z72.89 Other problems related to lifestyle; Z68.39 Body mass index [BMI] 39.0-39.9, adult; Z98.890 Other specified postprocedural states; Z86.2 Personal history of diseases of the blood and blood-forming organs and certain disorders involving the immune mechanism
CPT/HCPCS: 36415; 58671; 80048; 84703; 85025; 86850; 86900; 86901; J0690; J1100; J1170; J2250; J2405; J2704; J2710; J3010; J7120; U0003